=== PATIENT | male | born 1930 | race African-American/Black ===

== ENCOUNTER → 2018-01-15 | Outpatient (CLI) | payer MEDICARE, OTHER ==
[2018-01-15 14:00] LABS: INR 1.05; PROTHROMBIN TIME 14.7 seconds (11.9-14.5)
[2018-01-15 14:01] LABS: PARTIAL THROMBOPLASTIN TIME 27.7 seconds (23.8-35.5)
--- NOTE | 2018-01-15 15:07 | Diagnostic Imaging Report ---
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 The patient was positioned in the upright position. The right back was prepped and draped in standard sterile fashion. 1% lidocaine was infiltrated into the skin and subcutaneous tissues for local anesthesia. Preliminary ultrasound demonstrated a small right pleural effusion. Then under sonographic guidance, a 20 gauge spinal needle was advanced into the right pleural space. A total of 60 cc of serous fluid was aspirated. Post procedural ultrasound demonstrated very small residual effusion. The needle was removed and a sterile, occlusive dressing was applied. The patient tolerated the procedure well. IMPRESSION: Ultrasound-guided right diagnostic thoracentesis with aspiration of 60 cc of serous fluid. Signed by: Dr. Geoff Dejesus MD on 01/15/2018 3:04 PM
--- NOTE | 2018-01-15 15:13 | Diagnostic Imaging Report ---
EXAMINATION: CHEST XRAY POST PROCEDURE INDICATION: Status post right diagnostic thoracentesis. COMPARISON: None FINDINGS: TUBES and LINES: None. LUNGS AND PLEURA: Moderate inflation of the lungs. There is a linear and nodular opacity projecting over the right medial lower lung. Small right pleural effusion. No evidence of pneumothorax or pulmonary edema. HEART AND MEDIASTINUM: The cardiomediastinal silhouette is unremarkable. Stent projects over the midline lower mediastinum. BONES AND SOFT TISSUES: No acute osseous lesion. Soft tissues are unremarkable. UPPER ABDOMEN: No free air under the diaphragm. IMPRESSION: Status post right thoracentesis. Small right pleural effusion without evidence of pneumothorax. Indeterminate linear and nodular opacity overlying the medial right lung. Per discussion with the patient, he has had a prior chest tube. No prior imaging is available in our system. Correlation with any outside imaging is recommended for further evaluation. If outside imaging is not available, chest CT is suggested for evaluation. Signed by: Dr. Geoff Dejesus MD on 01/15/2018 3:09 PM
[2018-01-15 16:29] LABS: BODY FLUID APPEARANCE CLOUDY; BODY FLUID COLOR STRAW; BODY FLUID TYPE PLEURAL; RBC,BODY FLUID 366 cells/uL; WBC,BODY FLUID 20 cells/uL
[2018-01-15 16:56] LABS: LYMPHOCYTES,BODY FLUID 44 %; MONO/MACROPHG,BODY FLUID 31 %; NEUTROPHILS,BODY FLUID 15 %; OTHER CELLS,BODY FLUID 10 %
== END ==
LOC: US 13:05
PROVIDERS: ATTEND Internal Medicine Critical Care Medicine
DX: J90 Pleural effusion, not elsewhere classified (principal)
CPT/HCPCS: 32555; 36415; 71045; 83615; 84157; 85049; 85610; 85730; 87070; 87205; 88112; 88305; 89051